=== PATIENT | male | born 1985 | race Caucasian/White ===

== ENCOUNTER 2018-11-24 16:29 | Emergency (ER) | payer MEDICAID ==
[~2018-11-24] VITALS: Ht 172.7 cm; Wt 77.5 kg
[2018-11-24 16:38] VITALS: BP 132/80; PULSE 65; RESP 19; Ht 172.7 cm; Wt 77.5 kg
--- NOTE | 2018-11-24 17:15 | ERD ---
ER Documentation Chief Complaint Chief Complaint ABRASIONS IN LEFT HEAD, FACIAL AREAS, LEFT ARM DUE TO FALL; NECK PAIN HPI 33-year-old male, previously healthy, presents to the emergency department, complaining of persistent headache, associated with nausea, dizziness and blurry vision after sustaining a blunt head trauma 4 days ago while the patient was skating at a park. At the time of the injury, the patient did not present loss of consciousness but he was complaining of transient disorientation that lasted approximately 3 minutes. The patient also sustained superficial abrasions on the left side of his face. the patient has not seek medical attention. he denies distal weakness, numbness or tingling. ROS All systems reviewed and are negative except as per history of present illness. Medications Home Meds Active Scripts Ibuprofen* (Motrin*) 400 Mg Tab, 400 MG PO Q6H PRN for PAIN AND OR ELEVATED TEMP, #20 TAB Prov:PATTIE SZYMANSKI MD 11/24/18 Acetaminophen* (Tylenol*) 325 Mg Tablet, 2 TAB PO Q6 PRN for PAIN AND OR ELEVATED TEMP, #20 TAB Prov:PATTIE SZYMANSKI MD 11/24/18 PMhx/Soc Hypercholesterolemia FmHx Father with diabetes Family History: diabetes Physical Exam Vitals Vital Signs Date Temp Pulse Resp B/P (MAP) Pulse Ox O2 O2 Flow FiO2 Time Delivery Rate 11/24/18 98.5 65 19 132/80 98 16:38 (97) Physical Exam Patient alert, oriented, vital signs stable. HEAD: Normocephalic, left facial abrasions in different healing states, no evidence of infection. EYES: PERRLA, EOMI, Sclera and conjunctiva appear normal. NOSE: Clear and patent nostrils. EARS: Canals clear, tympanic membranes WNL. MOUTH: normal lips and tongue, no oral lesions. THROAT: Normal oropharynx, no tonsillar exudates. NECK: Supple, No lymphadenopathy. Full ROM without pain or tenderness. HEART: RRR, no rubs, murmurs, clicks or gallops. LUNGS: Clear to auscultation. ABDOMEN: Soft, non-tender without masses or hepatosplenomegaly. EXTREMITIES: No edema bilaterally. BACK: Full ROM, no deformity, normal back exam NEURO: Cranial nerves grossly intact, no motor or sensory deficit SKIN: No rashes, no petechia. Procedures/MDM Vital signs stable, Physical exam unremarkable, neurovascular exam intact. Differential diagnosis include but not limited to: Classical migraine, sinusitis, visual corrective problems, side effects of medications, dehydration, electrolyte imbalance, endocrine/autoimmune medical condition, stress, anxiety, tension headache. Low suspicion for meningitis, [employer] tumor, cerebrovascular event. CT of the head was ordered due nausea, persistent headache and blurred vision after a concussion. Physical examination and clinical presentation consistent most likely with Postconcussion Headache During the ED course the patient remained stable, no new complaints. Results and clinical impression discussed with patient who agrees with management. The patient is stable to be treated outpatient and will be discharged home, some side effects of prescribed medications (headache, rash, nausea, vomiting, diarrhea, drowsiness, habituation, bleeding, hypertension, interactions with other medications) were reviewed. Follow up with the primary care provider in the next 48h has been recommended. If symptoms persist, worsen or new symptoms develop, then patient should return to the ED immediately. Instructions explained and given directly by me to the patient with acknowledgment and demonstrated understanding. Disclaimer: Inadvertent spelling and grammatical errors are likely due to EHR/dictation software use and do not reflect on the overall quality of patient care. Also, please note that the electronic time recorded on this note does not necessarily reflect the actual time of the patient encounter. Departure Diagnosis: Primary Impression: Post-concussion headache Condition: Stable Additional Instructions: Muchas maria antonia por [facility] para zaragoza servicio. Esperamos que en zaragoza visita a la meaghan de emergencia zaragoza problema medico haya sido solucionado y que se sienta mucho mejor. Para estar seguros que zaragoza mejoria sigue en proceso, le pedimos el favor de hacer mary ellen gilda de seguimiento medico con zaragoza doctor primario en los proximos 2-4 jain. Lleve con usted estos documentos y las medicinas recetadas. Si zoya sintomas empeoran, NO SE ESPERE, por favor regrese a meaghan de emergencia INMEDIATAMENTE. En chio que usted no tenga un mdico de atencin primaria: Llame al mdico o clnica comunitaria de referencia que aparece abajo lang las horas de consultorio para hacer mary ellen gilda para que le vean. CLINICAS: [facility] [phone] [id number] [facility] [id number] [facility] [phone] [place] [id number] [phone] [place] [id number] [phone] [facility]. [phone] PATTIE BASS MD November 24, 2018 17:15
[2018-11-24] MEDS ORDERED: IBUP-1561 PO (18:48)
[2018-11-24] MEDS ORDERED: ACET325T33 PO (18:48)
== END 2018-11-24 19:04 | disposition home or self-care (01) ==
LOC: FTE 16:29
DX: S00.81XA Abrasion of other part of head, initial encounter (principal); G44.309 Post-traumatic headache, unspecified, not intractable; R42 Dizziness and giddiness; V00.121A Fall from non-in-line roller-skates, initial encounter
CPT/HCPCS: 70450